=== PATIENT | male | born 1995 | race Caucasian/White ===

== ENCOUNTER 2021-10-08 09:58 | Emergency (ER) | payer BC, SELFPAY ==
[2021-10-08 10:04] VITALS: BP 136/67; PULSE 67; RESP 16; TEMP 36.7; O2SAT 99
--- NOTE | 2021-10-08 10:16 | ED.URI ---
HPI - URI/Sore Throat General Chief Complaint: Upper Respiratory Infection Stated Complaint: Sinus Congestion Time Seen by Provider: 10/08/21 10:15 Source: patient and RN notes reviewed Mode of arrival: ambulatory Limitations: no limitations History of Present Illness HPI Narrative: 26-year-old male presents concern for 8-day history of sinus congestion, pain, drainage, headache He reports yesterday he started having eye drainage, his eyes were matted shut when he woke up. He reports he has been taking [id number] medications including Sudafed with little relief. He reports history of surgery on his tear ducts several years ago MD elicited complaint: nasal congestion and sinus pain Related Data Allergies Allergy/AdvReac Type Severity Reaction Status Date / Time No Known Allergies Allergy Verified 10/08/21 10:13 Review of Systems Review of Systems: CONSTITUTIONAL: Reports malaise. Denies chills, sweats, or fever. EYES: Denies visual changes, redness. Reports bilateral eye discharge, eye pressure ENT: Reports rhinorrhea, congestion, sinus pain. Denies otalgia and sore throat. CARDIOVASCULAR: Denies chest pain, palpitations, or edema. RESPIRATORY: Reports cough. Denies dyspnea. GASTROINTESTINAL: Denies abdominal pain, nausea, vomiting, diarrhea SKIN: Denies rash or itching. MUSCULOSKELETAL: Denies myalgia. NEUROLOGIC: Reports headache. All systems reviewed & are unremarkable except as noted in HPI and below PMFSH Family History Family History (Updated 01/10/14 @ 07:13 by DOCTOR UNKNOWN) Father Hypertension Cerebrovascular accident Family history of heart disease in male family member before age 55 Social History Social History Alcohol intake: never Comments At time of signature, agree with nursing past medical, surgical, social and family history. There is no relevant family history pertinent to the presenting complaint Exam Narrative: GENERAL: Nontoxic-appearing and in no acute distress. HEAD: Normocephalic EYES: PERRLA, conjunctivae clear, sclera clear, drainage noted, mild puffy under eyes ENT: Nares clear, turbinates edematous and erythematous, sinus tenderness. Mucous membranes moist. TM pearly pleitez with dull light reflex bilaterally; no tragal tenderness. Oropharynx not erythematous without lesions. Tonsils not enlarged and without exudate, no drooling, no hoarseness, no trismus, uvula midline. NECK: Supple. No lymphadenopathy CHEST: Clear to auscultation, breath sounds equal. No wheezing, rhonchi, rales, or stridor. No respiratory distress, speaks in full sentences. HEART: Regular rate and rhythm. No murmur heard. SKIN: Warm, dry, no rash. NEURO: Alert and oriented x3. PSYCH: Normal mood and affect Course Course Emergency Course: Patient is aware of diagnosis, understands and agrees to treatment plan. Anticipatory guidance given. Patient agrees to follow-up as directed and is aware of reasons to seek care at the emergency department. Portions of this record may have been created with voice recognition software Level of Care: Express Care Visit Vital Signs Vital signs: Vital Signs Temperature 98.1 F 10/08/21 10:04 Pulse Rate 67 10/08/21 10:04 Respiratory Rate 16 10/08/21 10:04 Blood Pressure 136/67 10/08/21 10:04 Pulse Oximetry 99 10/08/21 10:04 Oxygen Delivery Room Air 10/08/21 10:04 Temperature 98.1 F 10/08/21 10:04 Pulse Rate 67 10/08/21 10:04 Respiratory Rate 16 10/08/21 10:04 Blood Pressure 136/67 10/08/21 10:04 Pulse Oximetry 99 10/08/21 10:04 Oxygen Delivery Room Air 10/08/21 10:04 Reviewed. MDM - URI/Sore Throat MDM Narrative Medical decision making narrative: Differential diagnosis considered: Orantes virus, strep pharyngitis, allergic rhinitis, upper respiratory tract infection, sinusitis, rhinosinusitis, nasopharyngitis. viral pharyngitis, otitis media, otitis externa, pneumonia, bronchitis, viral cough syndrome, viral syndr
== END 2021-10-08 10:30 | disposition home or self-care (01) ==
PROVIDERS: Emergency Provider Nurse Practitioner
DX: J01.90 Acute sinusitis, unspecified (principal)
CPT/HCPCS: 99213; G0463

== ENCOUNTER 2021-10-16 14:18 | Emergency (ER) | payer BC, SELFPAY ==
[2021-10-16 14:27] VITALS: BP 123/70; PULSE 97; RESP 16; TEMP 37.7; O2SAT 99
--- NOTE | 2021-10-16 14:34 | ED.MALEGU ---
HPI - Male Genitourinary General Chief complaint: Urogenital-Male Stated complaint: Std test Time Seen by Provider: 10/16/21 14:30 History of Present Illness HPI Narrative: Patient is a 26-year-old male who presents the urgent care with complaints of exposure to chlamydia. Patient states that him and his were treated for chlamydia 2-1/2 years ago and he believes that they never took the medication appropriately . Patient states that his went and had her IUD removed recently at her [employer] and she was rechecked and positive for chlamydia at that time. Patient's has been treated for the last 2 days. Patient denies of any penile discharge or side effects of chlamydia. No other acute complaints. No acute distress noted. Patient aware of the plan of care. Some parts of this dictation were generated by voice recognition software and may contain typographical and/or grammatical inaccuracies. Related Data Home Medications Medication Instructions Recorded Confirmed amoxicillin 875 mg-potassium tablet 10/16/21 clavulanate 125 mg tablet Allergies Allergy/AdvReac Type Severity Reaction Status Date / Time No Known Allergies Allergy Verified 10/08/21 10:13 Review of Systems Review of Systems: CONSTITUTIONAL: Denies fever, chills, or sweats. EYES: Denies visual changes, redness, or discharge. ENT: Denies rhinorrhea, congestion, sore throat, or otalgia. CARDIOVASCULAR: Denies chest pain, palpitations, or edema. RESPIRATORY: Denies cough or dyspnea. GASTROINTESTINAL: Denies abdominal pain, nausea, vomiting, or diarrhea. GENITOURINARY: Denies dysuria or hematuria. Reports of exposure to chlamydia without side effects SKIN: Denies rash or itching. MUSCULOSKELETAL: Denies back pain, joint pain, or myalgia. NEUROLOGIC: Denies headache, numbness, or weakness. All other systems reviewed are negative, except as documented in HPI. [facility] Family History Family History (Updated 01/10/14 @ 07:13 by DOCTOR UNKNOWN) Father Hypertension Cerebrovascular accident Family history of heart disease in male family member before age 55 Social History Social History Alcohol intake: never Comments At the time of my signature, I reviewed and agree with the nursing past medical, surgical, social, and family history. There is no relevant family history pertinent to the patient complaint. Exam Narrative: GENERAL: This is a well-nourished, well-developed patient, in no apparent distress. HEAD: normocephalic, atraumatic. EYES: PERRL. Sclera clear/white. Vision is grossly intact. EARS: External ears normal NOSE: External nose normal with no obvious nasal discharge, nares without redness, no rhinorrhea. THROAT: Mucous membranes moist NECK: Neck supple CARDIOVASCULAR: Regular rate and rhythm without murmurs, gallops, or rubs. RESPIRATORY: Clear to auscultation. Breath sounds equal bilaterally. No wheezes, rales, or rhonchi. SKIN: warm, intact with no suspicious lesions or rash, good texture and turgor. NEURO: awake, alert, and oriented to person, place and time. There were no obvious focal neurologic abnormalities. EXTREMITIES: No clubbing, cyanosis, or edema. Course Course Level of Care: Express Care Visit Vital Signs Vital signs: Vital Signs Temperature 100 F H 10/16/21 14:27 Pulse Rate 97 10/16/21 14:27 Respiratory Rate 16 10/16/21 14:27 Blood Pressure 123/70 10/16/21 14:27 Pulse Oximetry 99 10/16/21 14:27 Oxygen Delivery Room Air 10/16/21 14:27 Temperature 100 F H 10/16/21 14:27 Pulse Rate 97 10/16/21 14:27 Respiratory Rate 16 10/16/21 14:27 Blood Pressure 123/70 10/16/21 14:27 Pulse Oximetry 99 10/16/21 14:27 Oxygen Delivery Room Air 10/16/21 14:27 Reviewed MDM - Male Genitourinary MDM Narrative Medical decision making narrative: Advised patient to complete the oral antibiotic regimen as prescribed. Be sure to eat and drink with the medication. It does hav
--- NOTE | 2021-10-16 15:24 | PC.NURSE ---
discharge delayed due to waiting on urine specimen. Pt attempted multiple times. Was finally able to provide and pt was discharged.
== END 2021-10-16 15:25 | disposition home or self-care (01) ==
PROVIDERS: Emergency Provider Nurse Practitioner Family
DX: Z02.0 Encounter for examination for admission to educational institution (principal)
CPT/HCPCS: 87491; 87591; 87661; 99213; G0463

== ENCOUNTER 2023-01-31 11:55 | Emergency (ER) | payer MEDICAID, SELFPAY ==
--- NOTE | ~2023-01-31 | XR_ITS ---
EXAMINATION: XR wrist LT min 3V DATE: 01/31/2023 12:42 INDICATION: Left wrist pain post hyperflexion soccer injury. TECHNIQUE: Posteroanterior, ulnar deviation, oblique, and lateral views of the left wrist were obtain ed. COMPARISON: none FINDINGS: Alignment is normal. No fracture. Joint spaces are normal. Soft tissues are unremarkable. IMPRESSION: 1. Negative left wrist radiographs. Reviewed, dictated and finalized at location A.
[2023-01-31 12:03] VITALS: BP 143/73; PULSE 70; RESP 20; TEMP 36.7; O2SAT 100
--- NOTE | 2023-01-31 13:02 | ED.UPPEXIN ---
HPI - Extremity Injury (Upper) General Chief Complaint: Extremity Injury, Upper Stated Complaint: Fall Injury/Left Arm Time Seen by Provider: 01/31/23 13:00 Source: patient, RN notes reviewed and old records reviewed Mode of arrival: ambulatory Limitations: no limitations History of Present Illness HPI narrative: 27-year-old male who presents to [facility] with complaints of injury to his left wrist. Patient states he was playing soccer yesterday and was hit by another player and he fell landing with his hand behind him and he hyperflexed his wrist. Patient reports that he has applied ice to wrist and taken Ibuprofen for his left wrist pain which he rates as 7 described and dull aching pain continuous mainly to anterior aspect of wrist. MD complaint: injury to: left and wrist Onset (ago): day(s) (1) Handedness: right Place: outdoors Severity scale (1-10): 7 Exacerbating factors: movement of extremity Treatments prior to arrival: cold therapy and NSAIDS Related Data Home Medications Medication Instructions Recorded Confirmed No Home Medications 01/31/23 01/31/23 Allergies Allergy/AdvReac Type Severity Reaction Status Date / Time No Known Allergies Allergy Verified 01/31/23 12:32 Review of Systems Review of Systems: CONSTITUTIONAL: Denies fever, chills, or sweats. EYES: Denies visual changes, redness, or discharge. ENT: Denies rhinorrhea, congestion, sore throat, or otalgia. CARDIOVASCULAR: Denies chest pain, palpitations, or edema. RESPIRATORY: Denies cough or dyspnea. GASTROINTESTINAL: Denies abdominal pain, nausea, vomiting, or diarrhea. GENITOURINARY: Denies dysuria or hematuria. SKIN: Denies rash or itching. MUSCULOSKELETAL: Denies back pain,positive for left wrist pain from injury, or myalgia. NEUROLOGIC: Denies headache, numbness, or weakness. PSYCHIATRIC: Denies anxiety or depression. All systems reviewed & are unremarkable except as noted in HPI and below PMFSH Past Medical History Medical History (Updated 02/01/23 @ 11:27 by Corinna Ferguson NP) Left fibular fracture surgical repair Family History Family History (Updated 01/10/14 @ 07:13 by DOCTOR UNKNOWN) Father Hypertension Cerebrovascular accident Family history of heart disease in male family member before age 55 Social History Social History (Updated 02/01/23 @ 11:26 by Corinna Ferguson NP) Smoking status: Current every day smoker Tobacco type: e-cigarettes/vaping Alcohol intake: never Substance use type: does not use Gender identity (if verbalized by the patient): Male Comments At time of signature, agree with nursing past medical, surgical, social and family history. There is no relevant family history pertinent to the presenting complaint Exam Narrative: GENERAL: Well-appearing, well-nourished, and in no acute distress. HEAD: Normocephalic, atraumatic. EYES: PERRLA and EOMI. ENT: Nares clear, no rhinorrhea or epistaxis. Mucous membranes moist.TM's ormal throat pink with no swelling NECK: Supple. no lymphadenopathy CHEST: Clear to auscultation. No respiratory distress.SAO2 100% on room air HEART: Regular rate and rhythm. No murmur heard. Normal peripheral pulses. ABDOMEN: Soft, nontender, nondistended, normal active bowel sounds. EXTREMITIES: Normal range of motion. No edema. reports pain to left anterior wrist with some mild swelling noted, increased discomfort with movement, sensation and circulation is intact to left arm with strong pulses present. SKIN: Warm, dry, no rash. NEURO: No focal deficits. Alert and oriented x3. Course Course Emergency Course: Patient is aware of diagnosis, understands and agrees to treatment plan.? Anticipatory guidance given.? Patient agrees to follow-up as directed and is aware of reasons to seek care at the emergency department. Portions of this record may have been created with voice recognition software Level of Care: Express Care Visit Vital Signs Vital signs
== END 2023-01-31 13:18 | disposition home or self-care (01) ==
PROVIDERS: Emergency Provider Registered Nurse
DX: S63.502A Unspecified sprain of left wrist, initial encounter (principal); S66.912A Strain of unspecified muscle, fascia and tendon at wrist and hand level, left hand, initial encounter; W50.0XXA Accidental hit or strike by another person, initial encounter; Y93.66 Activity, soccer; F17.290 Nicotine dependence, other tobacco product, uncomplicated
CPT/HCPCS: 73110; 99213; G0463